=== PATIENT | male | born 1970 | race Caucasian/White ===

== ENCOUNTER → 2024-04-01 14:06 | Outpatient (REF) | payer OTHER, SELFPAY | LOC: HWRAD 14:06 | PROVIDERS: ATTENDING PHYSICIAN Physician Assistant Medical | DX: J32.9 Chronic sinusitis, unspecified (principal) | CPT/HCPCS: 70210 ==

== ENCOUNTER → 2024-05-05 09:35 | Outpatient (REF) | payer OTHER, SELFPAY ==
--- NOTE | 2024-05-05 13:56 | CARDSERVDEF ---
Echocardiogram with Definity completed after protocol screening completed. Allergies verified.
Patent IV site: __Rt AC___
IV site flushed with 0.9% NaCl pre and post administration.
Diluted bolus method utilized to enhance visualization of ventricular arellano.
Total volume given: __4.0__ mL
Patient tolerated all procedures well without complications.
INT placed RT AC.. definity given for stress ECHO. procedure completed. INT d/c'd and pressure held. No bleeding noted.
== END ==
LOC: RCS 09:35
PROVIDERS: ATTENDING PHYSICIAN Internal Medicine Cardiovascular Disease; FAMILY PHYSICIAN Family Medicine Adult Medicine
DX: R06.09 Other forms of dyspnea (principal); R94.31 Abnormal electrocardiogram [ECG] [EKG]
CPT/HCPCS: 93017; 93350; Q9957

== ENCOUNTER → 2024-05-10 14:36 | Outpatient (REF) | payer OTHER, SELFPAY | LOC: HWRCS 14:36 | PROVIDERS: ATTENDING PHYSICIAN Internal Medicine Cardiovascular Disease; FAMILY PHYSICIAN Family Medicine | DX: R06.09 Other forms of dyspnea (principal); R94.31 Abnormal electrocardiogram [ECG] [EKG] | CPT/HCPCS: 93306 ==